=== PATIENT | male | born 1995 | race Caucasian/White ===

== ENCOUNTER 2024-12-29 07:47 | Outpatient (OUT) | payer OTHER, SELFPAY ==
--- OUTSIDE RECORDS SUMMARY | 2023-10-11 08:30 | XMS_ITS ---
Author Organization [facility] in [place] Address [address] [place] [address] Care Team Providers Care Asset Management Coordinator Name Role Phone Ivanna Carver CNP Primary Care Provider Unavail able Provider, Radiology Unavailable [phone] REASON FOR VISIT BRAIN W/WO Encounters Encounter Location Date Provider Diagnosis Radiology [facility] [address] [place] [address] 10/11/2023 Radiology Provider Plan Of Treatment No Information Progress Notes * Sincere GORDON RDOB: [birth year] (29 yo M)Acc No.[id number]:10/11/2023 UNLOCKED PROGRESS NOTE Patient: Sincere TAYLOR Provider: Eunice adiology Provider :1995 A ge:27 Y S ex:Male Date:10/11/2023 Address:[address] [place], [place] [id number] Pcp:Ivanna Carver CNP Check In:12:20 PM ESTCheck O ut:12:49 PM EST Subjective: * Chief Complaints: * 1 . BRAIN W/WO. 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
--- OUTSIDE RECORDS SUMMARY | 2024-12-29 07:53 | XMS_ITS | Encounter Summary ---
Author Organization [facility] Address [address] [place] [address] Care Team Providers Care Pourer Crane Ladle Name Role Phone Rajani Waggoner MD Unavailable [phone] Adrian Waggoner MD Unavailable Unavail able Maria C Enamorado APRN.METAL CUT OFF SAW OPERATOR Unavailable [phone] Niru Cardona RN Unavailable [phone] Tomasa Mederos Unavailable Unavailable Ivanna Carver METAL CUT OFF SAW OPERATOR Primary Care Provider [phone] Source Comments In the event this information is protected by the Federal Confidentiality of Alcohol and Drug AbusePatient Records regulations: The Federal rules restrict any use of the information to criminally investigate or prosecute any alcohol or drug abuse patient.[facility] Encounter Details Date Type Department Care Team (Late st Contact Info) Description 07/06/2022 Patient Msg Cancer Appts [address] [place] [address] Provider, Ccf Appointment Scheduled Social History Tobacco Use Types Packs/Day Years Used Date Smoking Tobacco: Never Passive Smoke Exposure: Past Smokeless Tobacco: Never Alcohol Use Standard Drinks/Week Comments Yes 12 (1 standard drink = 0.6 oz pu re alcohol) PHQ-2 Answer Date Recorded PHQ-2 score 0 04/10/2022 Area Deprivation Index Answer Date Lopez rded National Score (1-100), lower number is lower ri sk 73 04/02/2022 State Score (1-10), lower number is lower risk N ot on file 04/02/2022 Data from: https://www.neighborhoodatlas.medicine.[facility]/. Last address used for calculation [address] 04/02/2022 Sex and Gender Information Value Date Recorded Sex Assigned at Not on file Legal Sex Male 3:21 PM EDT Gender Identity Not on file Sexual Orientation Not on file documented as of this encounter Plan of Treatment Upcoming Encounters Date Type Department Care Team (Latest Contact Info) Description 06/10/2025 11:15 AM EDT Office Visit [facility] [address] [place] [address] [place] [address] 1 year follow up [facility] lab ALEC/BRM 06/10/2025 11:40 AM EDT Visit (SP) Office Hematology/Oncology [address] [place] [address] [place] [address] Shaan Parish MD [address] [place] [address] [place] [address] 1 year follow up [facility] lab ALEC/BRM documented as of this encounter Visit Diagnoses Not on filedocumented in this encounter Care Teams Pourer Crane Ladle Relationship Specialty Start Date End Date Ivanna Carver METAL CUT OFF SAW OPERATOR [facility] [place] [address] PCP - General Family Medicine 11/14/21 Rajani Waggoner MD [address] [place], [place] [address] Radiation Oncology 12/08/20 Adrian Waggoner MD [address] [place], [place] [address] Physician Hematology/Oncology 01/10/21 09/18/24 Maria C Enamorado APRN.METAL CUT OFF SAW OPERATOR [address] [place] [address] Nurse Practitioner Hematology/Oncology 01/10/21 Niru Cardona, RN [address] [place] [address] Specialty Buffing Wheel Inspector Hematology/Oncology 01/10/21 01/07/24 Tomasa Mederos LSW Tank Truck Engine Mechanic 10/18/21 documented as of this encounter
--- OUTSIDE RECORDS SUMMARY | 2024-12-29 07:53 | XMS_ITS | Encounter Summary ---
Author Organization [facility] Address [id number] [address] [place] [address] Care Team Providers Care Cadmium Burner Name Role Phone Breana Loredo MD Primary Care Provider [phone] Encounter Details Date Type Department Care Team (Late st Contact Info) Description 06/06/2021 Orders Only [facility] [address] [place] [id number] Hetal Lomas CMA Astrocytoma ([facility]) Social History Tobacco Use Types Packs/Day Years Used Date Smoking Tobacco: Never Smokeless Tobacco: Never Alcohol Use Standard Drinks/Week Comments Yes 0 (1 standard drink = 0.6 oz pur e alcohol) Occasional Childcare Answer Date Recorded Childcare Unknown 08/27/2018 Employment Answer Date Recorded Employment Unknown 08/27/2018 Sex and Gender Information Value Date Recorded Sex Assigned at Not on file Legal Sex Male 12:12 PM EDT Gender Identity Not on file Sexual Orientation Not on file documented as of this encounter Plan of Treatment Not on file documented as of this encounter Goals Goal Patient Goal Type Associated Problems Recent Progress Patient-Stated? Author <enter goal here> General Yes Jessie Landin, DIRECT SUPPORT PROFESSIONAL Note: Evaluation of progress towards goal: Home, no needs documented as of this encounter Visit Diagnoses Diagnosis Astrocytoma ([facility]) Malignant neoplasm of brain, unspecified site documented in this encounter Care Teams Cadmium Burner Relationship Specialty Start Date End Date Breana Loredo MD PCP - General Family Medicine 11/12/20 documented as of this encounter
--- OUTSIDE RECORDS SUMMARY | 2024-12-29 07:53 | XMS_ITS | Patient Health Record ---
Author Organization [facility] [place] Address [address] [place] [address] Care Team Providers Care Die Sinker Apprentice Name Role Phone Ivanna Carver CNP Primary Care Provider Unavail able Provider, Radiology Unavailable [phone] Results Component Value Reference Range Notes MRI Brain w/wo contrast * (N ot yet reviewed by provider) Interpretation: Performing Lab: Notes/Report: [facility], [place] [address] [place] [address] Name: Heidi Dawson : 1995 Gender: M Referring Provider: Adrian Waggoner Exam: MRI BRAIN WITH AND WITHOUT CONTRAST Exam Start: 05/25/2024 Accn: [id number] History: Anaplastic astrocytoma resection 2019. Follow-up. Malignancy evaluation. MRI of the brain with and without gadolinium including perfusion images. Patient was given 15 mL of Clariscan IV. Exam is compared to the 10/11/23 MRI of the brain. Findings: Postop changes left frontal lobe at the junction of the left middle and inferior frontal gyri with CSF cavity in this region having a maximum diameter of 2.5 cm. This is stable. Small amount of nonenhancing increased T2 signal adjacent to the operative site is also stable. No new increased T2 signal within the brain parenchyma, particularly adjacent to the operative site. No abnormal enhancement. No abnormal blood flow on the perfusion images. No restricted diffusion. No low-lying cerebellar tonsils. Brainstem is unremarkable. No abnormalities in the region of the internal auditory canals or sella. No venous thrombosis. Mild membrane thickening in the maxillary sinuses. 2.3 cm mucous retention cyst in the left maxillary sinus is stable. Orbits are unremarkable. Left mastoid effusion is stable with no aggressive features. IMPRESSION: 1. Postop changes left frontal lobe are stable dating back to the 03/21/23 MRI of the brain. No evidence for tumor recurrence. 2. Mild chronic changes otherwise noted are stable. 3. No acute intracranial process. Transcribed by: ASAF BARRIOS 05/25/2024 09:48 Sincerely, Johny Glez MD Electronically Signed: 05/25/2024 10:47 Thank you for referring ISNCERE GORDON to the [facility], [facility], [phone] Reason For Referral No Information Problems Problem Type SNOMED Code ICD Code Onset Dates Problem Status W/U Status Risk Notes Problem Malignant neoplasm of frontal lobe ([id number]) Astrocytoma of frontal lobe (C71.1) Active confirmed Problem History of malignant neoplasm of brain (194026402) H/O malignant neoplasm of brain (Z85.841) Active confirmed Encounters Encounter Location Date Provider Diagnosis [facility] [address] [place] [address] 05/25/2024 Radiology Provider Malignant neoplasm of brain, unspecified C71.9 Assessments Encounter Date Diagnosis (ICD Code) Assessment Notes Treatment Notes Treatment Clinical Notes Section Notes 05/25/2024 Malignant neoplasm of brain, unspecified (ICD-10 - C71.9) Plan Of Treatment Pending Test Test Name Order Date MRI Brain w/wo contrast * 06/05/2021 MRI Brain w/wo contrast * 09/19/2021 MRI Brain w/wo contrast * 12/29/2021 MRI Brain w/wo contrast * 03/30/2022 MRI Brain w/wo contrast * 07/12/2022 MRI Brain w/wo contrast * 11/20/2022 MRI Brain w/wo contrast * 03/21/2023 MRI Brain w/wo contrast * 10/11/2023 MRI Brain w/wo contrast * 05/25/2024 Insurance Providers Payer Name Payer Address Payer Phone Subscriber Number Group Number Insured Name Patient Relationship to Insured Coverage Start Date Coverage End Date MMO [employer] [address] [place] [phone] [id number] Sincere Gordon Self - patient is the insured 2
--- OUTSIDE RECORDS SUMMARY | 2024-12-29 07:53 | XMS_ITS | Encounter Summary ---
Author Organization [facility] Address [address] [place] [address] Care Team Providers Care Psychologist Research Assistant Name Role Phone Breana Loredo MD Primary Care Provider [phone] Rajani Waggoner MD Unavailable [phone] Adrian Waggoner MD Unavailable Unavail able Maria C Enamorado APRN.PRINCIPAL TECHNICAL WRITER Unavailable [phone] Niru Cardona RN Unavailable [phone] Tomasa Mederos Unavailable Unavailable Ivanna Carver CNP Primary Care Provider [phone] Source Comments In the event this information is protected by the Federal Confidentiality of Alcohol and Drug AbusePatient Records regulations: The Federal rules restrict any use of the information to criminally investigate or prosecute any alcohol or drug abuse patient.[facility] Encounter Details Date Type Department Care Team (Latest Contact Info) Description 12/08/2020 H&P External-NonCCF Provider, External, [facility] Do not enter address information under generic External Provider. Social History Tobacco Use Types Packs/Day Years Used Date Smoking Tobacco: Never Assessed Sex and Gender Information Value Date Recorded Sex Assigned at Not on file Legal Sex Male 3:21 PM EDT Gender Identity Not on file Sexual Orientation Not on file COVID-19 Exposure Response Date Recorded In the last month, have you been in contact with someone who was confirmed or suspected to have Coronavirus / COVID-19? Unable to assess 12/08/2020 8:53 AM EDT documented as of this encounter Plan of Treatment Upcoming Encounters Date Type Department Care Team (Latest Contact Info) Description 06/10/2025 11:15 AM EDT Office Visit [facility] [address] [place] [address] [place] [address] 1 year follow up [facility] lab ALEC/BRM 06/10/2025 11:40 AM EDT Visit (SP) Office Hematology/Oncology [address] [place] [address] [place] [address] Shaan Parish MD [address] [place] [address] [place] [address] 1 year follow up [facility] lab ALEC/BRM documented as of this encounter Visit Diagnoses Not on filedocumented in this encounter Care Teams Psychologist Research Assistant Relationship Specialty Start Date End Date Breana Loredo MD [address] [place] [address] PCP - General Family Medicine 12/07/20 11/13/21 Ivanna Carver, PRINCIPAL TECHNICAL WRITER [address] [place] [address] PCP - General Family Medicine 11/14/21 Rajani Waggoner MD [address] [place], [place] [address] Radiation Oncology 12/08/20 Adrian Waggoner MD [address] [place], [place] [address] Physician Hematology/Oncology 01/10/21 09/18/24 Maria C Enamorado APRN.PRINCIPAL TECHNICAL WRITER [address] [place] [address] Nurse Practitioner Hematology/Oncology 01/10/21 Niru Cardona, RN [address] [place] [address] Specialty Wood Technologist Hematology/Oncology 01/10/21 01/07/24 Tomasa Mederos LSW Plant Technical Specialist 10/18/21 documented as of this encounter
--- OUTSIDE RECORDS SUMMARY | 2024-12-29 07:54 | XMS_ITS | Encounter Summary ---
Author Organization [facility] Address [id number] [address] [place] [address] Care Team Providers Care Fiction And Nonfiction Author Name Role Phone Breana Lordeo MD Primary Care Provider [phone] Encounter Details Date Type Department Care Team (Late st Contact Info) Description 11/18/2020 Telephone [facility] [address] [place] [address] Deann Dupree Social History Tobacco Use Types Packs/Day Years [...] have Coronavirus / COVID-19? Unable to assess 11/17/2020 10:55 AM EDT documented as of this encounter Miscellaneous Notes * Telephone Encounter - Deann Dupree - 11/18/2020 8:01 AM EDT ----- Message from Nilam Mcpherson MD sent at 11/16/2020 2:34 PM EDT ----- Regarding: Follow-up appointment Patient needs a new patient appointment with myself in 4-6 months for Keppra wean off. * Telephone Encounter - Frances Harpel - 11/18/2020 8:01 AM EDT Attempted to schedule appointment. Patient's mother in law answered and took a message for Clayton to call back. Environmental Field Professional left clinic phone number. Thank you! documented in this encounter Plan of Treatment Not on file documented as of this encounter Goals Goal Patient Goal Type Associated Problems Recent Progress Patient-Stated? Author <enter goal here> General Yes Jessie Landin LSW Note: Evaluation of progress towards goal: Home, no needs documented as of this encounter Visit Diagnoses Not on filedocumented in this encounter Care Teams Fiction And Nonfiction Author Relationship Specialty Start Date End Date Breana Loredo MD PCP - General Family Medicine 11/12/20 documented as of this encounter
--- OUTSIDE RECORDS SUMMARY | 2024-12-29 07:54 | XMS_ITS | Clinical Summary ---
Author Organization [facility] Address [address] [place] [address] Care Team Providers Care Highway Research Engineer Name Role Phone Rajani Waggoner MD Unavailable [phone] Maria C Enamorado APRN.SENIOR FINANCIAL REPORTING ANALYST Unavailable [phone] Tomasa Mederos Unavailable Unavailable Ivanna Carver SENIOR FINANCIAL REPORTING ANALYST Primary Care Provider [phone] Allergies Active Allergy Reactions Criticality Noted Date Comments Tama Pollen Other: See Comments 12/20/2020 Nose congestion Medications levETIRAcetam (KEPPRA) 500 mg tablet Take 1 tablet by mouth twice daily. 500MG AM AND 1000 PM 60 tablet 11 07/12/2022 Active Active Problems Problem Noted Date Diagnosed Date Left frontal astrocytoma, WH O grade 3, IDH-mutant, 1p/19q non codeleted 12/20/2020 Immunizations Immunization Administration Dates Next Due Haemophilus influenzae b (Hi b) vaccine, unspecified formulation 04/07/1997,07/13/1996 diphtheria tetanus pertussis (DTaP) vaccine, unspecified formulation 06/18/2001,04/07/1997,07/13/1996 diphtheria tetanus pertussis -Haemophilus influenzae b (DTP-Hib) vaccine (TETRAMUNE) 04/15/1996,01/06/1996 hepatitis B (HepB) vaccine, 3-dose series, age 0 yr - 19 yr (ENGERIX B-PEDS, RECOMBIVAX HB-PEDS) 07/13/1996,01/06/1996,1995 influenza (IIV4) vaccine, ag e 6 mo - 64 yr, quadrivalent, PF (AFLURIA, FLUARIX, FLULAVAL, FLUZONE) 12/28/2020 measles mumps rubella (MMR) vaccine (M-M-R II, PRIORIX) 09/09/2001,04/07/1997 meningococcal (MenACWY-D) va ccine, quadrivalent (MENACTRA) 08/31/2010 poliovirus (IPV) vaccine, in activated (IPOL) 06/18/2001 poliovirus (OPV) vaccine, tr ivalent, live, oral (ORIMUNE) 07/13/1996,04/15/1996,01/06/1996 tetanus diphtheria pertussis (Tdap) vaccine, age 7+ yr (ADACEL, BOOSTRIX) 08/31/2010 Family History Medical History Relation Comments Tongue cancer Maternal Grandfather Relation Status Comments Maternal Grandfather Social History Tobacco Use Types Packs/Day Years Used Date Smoking Tobacco: Never Passive Smoke Exposure: Past Smokeless Tobacco: Never Tobacco Cessation:Counseling Given: No Alcohol Use Standard Drinks/Week Comments Yes 12 (1 standard drink = 0.6 oz pu re alcohol) PHQ-2 Answer Date Recorded PHQ-2 score 0 10/15/2023 Area Deprivation Index Answer Date Lopez rded National Score (1-100), lower number is lower ri sk 78 07/24/2022 State Score (1-10), lower number is lower risk 6 07/24/2022 Data from: https://www.neighborhoodatlas.medicine.[facility].edu/. Last address used for calculation [address] [place] [address] 07/24/2022 Sex and Gender Information Value Date Recorded Sex Assigned at Not on file Legal Sex Male 3:21 PM EDT Gender Identity Not on file Sexual Orientation Not on file Last Filed Vital Signs Vital Sign Reading Time Taken Comments Blood Pressure 129/79 06/11/2024 10:56 AM EDT Pulse 74 06/11/2024 10:56 AM EDT Temperature 36.3 C (97.3 F) 06/11/2024 10:56 AM EDT Respiratory Rate 16 06/11/2024 10:56 AM EDT Oxygen Saturation 100% 06/11/2024 10:56 AM EDT Inhaled Oxygen Concentration - - Weight 86.2 kg (190 lb 0.6 oz) 06/11/2024 10:56 AM EDT Height 177.8 cm (5' 10 ) 10/15/2023 8:59 AM EDT Body Mass Index 27.27 10/15/2023 8:59 AM EDT Plan of Treatment Upcoming Encounters Date Type Department Care Team (Latest Contact Info) Description 06/10/2025 11:15 AM EDT Office Visit [facility] [address] [place] [address] [facility] lab ALEC/BRM 06/10/2025 11:40 AM EDT Visit (SP) Office Hematology/Oncology [address] [place] [address] Shaan Parish MD [address] [place] [address] [facility] lab ALEC/BRM Health Maintenance Due Date Last Done Comments Anxiety Screening 10/17/2013 Depression Screening 10/17/2013 HIV Screening 10/17/2013 Hepatitis C Screening 10/17/2013 DTaP,Tdap,Td Vaccine (7 - Td or Tdap) 08/31/2020 08/31/2010, 06/18/2001, 04/07/1997, Additional history exists HPV Vaccine (1 - 3-dose SCDM series) 10/17/2022 Covid-19 Vaccine ( - 2024-2 6 season) 2024 Influenza Vaccine (#1) 2024 12/28/2020 Hepatitis B Vaccine Completed 07/13/1996, 01/06/1996, 1995 Insurance [facility] PPO Care Teams Highway Research Engineer Relationship Specialty Start Date End Date Ivanna Carver CNP [address] [place] [address] PCP - General Family Medicine 11/14/21 [place] [address] [place] [address] Radiation Oncology 12/08/20 Maria C Enamorado APRN.SENIOR FINANCIAL REPORTING ANALYST [address] [place] [address] [place] [address] Nurse Practitioner Hematology/Oncology 01/10/21 Tomasa Mederos LSW Crane Hooker 10/18/21
--- OUTSIDE RECORDS SUMMARY | 2024-12-29 07:54 | XMS_ITS | Encounter Summary ---
Author Organization [employer] tem Address [facility] [id number] [address] [place] [address] Care Team Providers Care Geographic Information System Analyst Name Role Phone Breana Loredo MD Primary Care Provider [phone] Reason for Referral * Consultation (Routine) - Closed Specialty Diagnoses / Procedures Referred By Contjonn t Referred To Contact Medical Oncology Diagnoses Astrocytoma ([facility]) Richard Godwin MD [address] [place] [address] Phone: tel: fax: Adrian Waggoner MD Phone: tel: fax: Referral ID Status Reason Start Date Expiration Date V isits Requested Visits Authorized [id number] Closed Specialty Services Required 12/07/2020 12/07/2021 1 1 * Consultation (Routine) - Closed Specialty Diagnoses / Procedures Referred By Contac t Referred To Contact Radiation Oncology Diagnoses Astrocytoma ([facility]) Richard Godwin MD [address] [place] [address] Phone: tel: fax: Cortes Melendez MD [address] [place] [address] [place] [address] Phone: tel: fax: Referral ID Status Reason Start Date Expiration Date V isits Requested Visits Authorized [id number] Closed Specialty Services Required 12/07/2020 12/07/2021 1 1 Encounter Details Date Type Department Care Team (Late st Contact Info) Description 12/07/2020 Orders Only [facility] [address] [place] [address] Coleen Cadena MA Astrocytoma ([facility]) (Primary Dx) Social History Tobacco Use Types Packs/Day Years [...] or suspected to have Coronavirus / COVID-19? No / Unsure 12/01/2020 3:28 PM EDT documented as of this encounter Plan of Treatment Scheduled Referrals Name Type Priority Associated Diagnoses Order Schedule Ambulatory referral to Radiation Oncology Outpatient Referral Routine Astrocytoma ([facility]) 1 Occurrences starting 12/07/2020 until 06/06/2021 Ambulatory referral to Hematology / Oncology Outpatient Referral Routine Astrocytoma ([facility]) 1 Occurrences starting 12/07/2020 until 06/06/2021 documented as of this encounter Goals Goal Patient Goal Type Associated Problems Recent Progress Patient-Stated? Author <enter goal here> General Yes Jessie Landin, ASSISTANT PROFESSOR OF BIOCHEMISTRY Note: Evaluation of progress towards goal: Home, no needs documented as of this encounter Visit Diagnoses Diagnosis Astrocytoma ([facility])- Primary Malignant neoplasm of brain, unspecified site documented in this encounter Care Teams Geographic Information System Analyst Relationship Specialty Start Date End Date Breana Loredo MD PCP - General Family Medicine 11/12/20 documented as of this encounter
--- OUTSIDE RECORDS SUMMARY | 2024-12-29 07:54 | XMS_ITS | Clinical Summary ---
Author Organization [employer] tem Address [facility] [place]-[id number] [address] [place] [address] Care Team Providers Care Online Communications Manager Name Role Phone Breana Loredo MD Primary Care Provider [phone] Allergies No known active allergies Medications acetaminophen (TYLENOL) 500 mg tablet Take 500 mg by mouth every 6 (six) hours as needed. Active ondansetron (ZOFRAN) 8 mg tablet Take 8 mg by mouth every 8 (eight) hours as needed. 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 - does not have homozygous CDKN2A/B deletion New onset seizure 11/12/2020 Immunizations No known immunizations Social History Tobacco Use Types Packs/Day Years [...] Sign Reading Time Taken Comments Blood Pressure 133/84 11/17/2020 11:11 AM EDT Pulse 65 11/17/2020 11:11 AM EDT Temperature 37 C (98.6 F) 11/17/2020 11:11 AM EDT Respiratory Rate 16 11/17/2020 11:11 AM EDT Oxygen Saturation 96% 11/17/2020 11:11 AM EDT Inhaled Oxygen Concentration - - Weight 81.9 kg (180 lb 8.9 oz) 11/13/2020 6:00 A M EDT Height 182.9 cm (6') 11/12/2020 5:42 PM EDT Body Mass Index 24.49 11/12/2020 5:42 PM EDT Plan of Treatment Health Maintenance Due Date Last Done Comments Depression Screening 2007 Tobacco Screening 2007 Adult BMI Screening 10/17/2013 DTaP,Tdap and Td Vaccines (7 - Td or Tdap) 08/31/2020 08/31/2010, 06/18/2001, 04/07/1997, Additional history exists Influenza Vaccine 11/16/2024 12/28/2020 Goals Goal Patient Goal Type Associated Problems Recent Progress Patient-Stated? Author <enter goal here> General Yes Jessie Landin, LANCE CREWMEMBER Note: Evaluation of progress towards goal: Home, no needs Medical Devices Implanted Type Area Grain Elevator Operator Device Identifier Shelf Expiration Date Model / Serial / Lot Cover Bur Hl Crnmxf .5mm 10mm Lp Tab Unv Neuro 2 Med Ti 1.5 - [id number] Implanted:Qt y: 1 on 11/15/2020 by Richard Godwin MD at [facility] Other Implant Left: Brain [employer] [id number] / / Plate Bn 12mm 2 Hl Lp Bar X Rgd Unv Neuro Ii Quikflap Crnmxf - [id number] Implanted:Qt y: 3 on 11/15/2020 by Richard Godwin MD at [facility] Plate Left: Brain [employer] [id number] / / Screw Bn 4mm 1.5mm Slf Drl Xpn Crnmxf Strl - [id number] Implanted:Qt y: 9 on 11/15/2020 by Richard Godwin MD at [facility] Screw Left: Brain [employer] [id number] / / Insurance [employer] Advance Directives * Full Code (Latest Code Status on File) Date Activated Date Inactivated Comments 11/12/2020 5:36 PM 11/17/2020 5:57 PM Care Teams Online Communications Manager Relationship Specialty Start Date End Date Breana Loredo MD PCP - General Family Medicine 11/12/20
--- OUTSIDE RECORDS SUMMARY | 2024-12-29 07:54 | XMS_ITS | Encounter Summary ---
Author Organization [employer] Address [facility] [id number] [address] 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[facility]) Richard Godwin MD [address] [place] [address] Phone: tel: fax: Breana Loredo MD [address] [place] [address] Phone: tel: fax: Referral ID Status Reason Start Date Expiration Date Visits Requested Visits Authorized [id number] Closed Patient Preference 05/29/2021 05/29/2022 1 1 Encounter Details Date Type Department Care Team (Late st Contact Info) Description 12/07/2020 Orders Only [facility] [address] [place] [phone] Richard Godwin MD [address] [place] [address] Glioma ([facility]) (Primary Dx) Social History Tobacco Use Types [...] Associated Diagnoses Order Schedule Ambulatory referral to Hematology / Oncology Outpatient Referral Routine Glioma ([facility]) 1 Occurrences starting 05/29/2021 until 06/06/2021 documented as of this encounter Goals Goal Patient Goal Type Associated Problems Recent Progress Patient-Stated? Author <enter goal here> General Yes Jessie Landin, ANODE MACHINE OPERATOR Note: Evaluation of progress towards goal: Home, no needs documented as of this encounter Visit Diagnoses Diagnosis Glioma ([facility])- Primary documented in this encounter Care Teams Crime Scene Specialist Relationship Specialty Start Date End Date Breana Loredo MD PCP - General Family Medicine 11/12/20 documented as of this encounter
--- OUTSIDE RECORDS SUMMARY | 2024-12-29 07:54 | XMS_ITS | Clinical Summary ---
Author Organization [facility] Address [address] [place] [address] Care Team Providers Care Radiology Tech Name Role Phone Emile Mccormack DO Unavailable [phone] Ivanna Kidd MD Unavailable Quinn Red MD Primary Care Provider [phone] Ivanna Carver NP Unavailable [phone] Allergies No known active allergies Medications levETIRAcetam (Keppra) 500 MG tablet Take 1 tablet by mouth in the morning and 1 tablet before bedtime. 10/15/2022 Active Active Problems Problem Noted Date Diagnosed Date Burning sensation 11/10/2024 Seizure 10/05/2024 Assessment & Plan (10/05/2024 6:24 AM EDT): From brain tumor keppra Encounter for wellness examination 10/05/2024 Assessment & Plan (10/05/2024 6:28 AM EDT): Reviewed Ht/Wt/BMI Recommend eye exam yearly Recommend dental exams twice a year Balance work/leisure activities Exercises is recommended most days of the week (appropriate as chronic conditions allow) Follow up yearly and prn Verruca vulgaris 10/05/2024 Assessment & Plan (11/10/2024 8:58 AM EDT): Cryo X3, tolerated well Fu in 1month Assessment & Plan (10/05/2024 9:03 AM EDT): Schedule for cryo 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 We'll monitor this and may consider an increase in the future for the symptoms if they become further problematic for him. 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 - does not have homozygous CDKN2A/B deletion Resolved Problems Problem Noted Date Diagnosed Date Resolved Date Subacute maxillary sinusitis 10/05/2024 11/10/2024 Assessment & Plan (10/05/2024 9:01 AM EDT): Likely secondary to allergies Will order atb Fu if not better Other chronic pain 09/29/2023 Acute non-recurrent maxillary sinusitis 04/23/2023 10/05/2024 Assessment & Plan (04/23/2023 10:54 AM EST): Fluids , rest, decongestant Atb, fu if not better New onset seizure 11/12/2020 10/05/2024 Encounters Date Type Department Care Team Description 11/10/2024 8:20 AM EDT Procedure Visit [facility] [address] [place] [address] Ivanna Carver, STUART Verruca vulgaris (Primary Dx); Burning sensation 11/10/2024 Bamboo flowsheet [facility] [address] [place] [address] Ivanna Carver NP 10/05/2024 8:40 AM EDT Office Visit [facility] [address] [place] [address] Ivanna Carver NP Encounter for wellness examination (Primary Dx); Seizure (HCC); Frontal malignant astrocytoma (HCC); Subacute maxillary sinusitis; Verruca vulgaris 10/05/2024 Bamboo flowsheet [facility] [address] [place] [address] Ivanna Carver NP from Last 3 Months Immunizations Immunization Administration Dates Next Due DTP / HiB 04/15/1996,01/06/1996 DTaP, Unspecified 06/18/2001,04/07/1997,07/13/18 97 Hep B, Adolescent or Pediatric 07/13/1996,1995,1995 HiB, unspecified 04/07/1997,07/13/1996 IPV 06/18/2001 Influenza, injectable, quadr ivalent, preservative free 12/28/2020 MMR 09/09/2001,04/07/1997 Meningococcal MCV4P 08/31/2010 OPV 07/13/1996,04/15/1996,01/06/1996 Tdap 08/31/2010 Family History Medical History Relation Name Comments Hypertension Mother Relation Name Status Comments Mother Social History Tobacco Use Types Packs/Day Years Used Date Smoking Tobacco: Never Smokeless Tobacco: Never Tobacco Cessation:Counseling Given: Not Answered Alcohol Use Standard Drinks/Week Comments Yes 2 (1 standard drink = 0.6 oz pur e alcohol) coffee all day AUDIT-C Answer Date Recorded Q1: How often do you have a drink containing alc ohol? 2-4 times a month 09/29/2023 Q2: How many drinks containi ng alcohol do you have on a typical day when you are drinking? 1 or 2 09/29/2023 Q3: How often do you have si x or more drinks on one occasion? Never 09/29/2023 PHQ-2 Answer Date Recorded Patient Health Questionnaire-2 Score 1 04/23/2023 Sex and Gender Information Value Date Recorded Sex Assigned at Not on file Legal Sex Male 11:13 PM EDT Gender Identity Not on file Sexual Orientation Not on file Last Filed Vital Signs Vital Sign Reading Time Taken Comments Blood Pressure 112/72 11/10/2024 8:38 AM EDT Pulse 71 11/10/2024 8:38 AM EDT Temperature 37 C (98.6 F) 11/10/2024 8:38 AM EDT Respiratory Rate 18 11/10/2024 8:38 AM EDT Oxygen Saturation 98% 11/10/2024 8:38 AM EDT Inhaled Oxygen Concentration - - Weight 85.7 kg (189 lb) 11/10/2024 8:38 AM EDT Height 182.9 cm (6') 11/10/2024 8:38 AM EDT Body Mass Index 25.63 11/10/2024 8:38 AM EDT Plan of Treatment Not on file Insurance [employer] Care Teams Radiology Tech Relationship Specialty Start Date End Date Quinn Red MD [address] [place] [phone] PCP - General Family Medicine 09/30/24 Emile Mccormack DO [address] [place] [address] Referring Physician Neurology 03/25/24 Ivanna Kidd MD [address] [place] [address] Referring Physician Family Medicine 03/25/24 Ivanna Carver NP [address] [place] [phone] Nurse Practitioner Family Medicine 09/30/24
--- NOTE | 2024-12-29 07:59 | CT_ITS ---
The [address] [address] Patient Name: LUIS PAINTING MRN: [id number] date: 1995 Sex: M Assigned Patient Location: CT Current Patient Location: CT Accession/Order Number: [id number] Exam Date: 12/29/2024 08:04 Report Date: 12/29/2024 08:48 At the request of: NENO NUNO NP Procedure: CT sinus wo con CT PARANASAL SINUSES WITHOUT CONTRAST: CLINICAL HISTORY: Chronic Sinusitis J32.9 COMPARISON: None TECHNIQUE: Contiguous axial unenhanced images were obtained through the paranasal sinuses. Coronal reconstructions were also performed. This CT exam was performed using one or more following dose reduction techniques: Automated exposure control, adjustment of the mA and/or kV according to patient size, or use of iterative reconstruction technique. FINDINGS: There is appropriate development and pneumatization. There is previous surgery with resection of the medial maxillary ramirez and middle turbinates. There is mild bilateral maxillary mucosal thickening as well as a mucous distention cyst or polyp on the left measuring approximately 2.7 cm in size. There is an opacified right ethmoid air cell. No fluid levels are seen. No bony destruction is noted. Minimal asymmetric mucosal congestion is present within the left nasal passage. There is subtle anterior nasal septal deviation to the right. CT/CT sinus wo con IMPRESSION: POSTOPERATIVE CHANGES. MINOR CHRONIC SINUSITIS AND LEFT MAXILLARY MUCUS RETENTION CYST OR POLYP Impression dictated by: Nicole Gallardo M.D. 12/29/2024 8:48 AM Dictation Location: [place] [address] Electronically authenticated by: [id number] Y Date: 12/29/2024 08:48
== END 2024-12-29 07:48 | disposition home or self-care (01) ==
PROVIDERS: PCP Nurse Practitioner; Visit Provider Nurse Practitioner
DX: J32.9 Chronic sinusitis, unspecified (principal)
CPT/HCPCS: 70486

== ENCOUNTER 2025-01-27 08:00 | Outpatient (OUT) | payer OTHER, SELFPAY ==
--- OUTSIDE RECORDS SUMMARY | 2023-10-11 07:30 | XMS_ITS ---
Author Organization [facility] in [place] Address [address] [place] [address] Care Team Providers Care Vocational Aide Name Role Phone Ivanna Carver CNP Primary Care Provider Unavail able Provider, Radiology Unavailable [phone] REASON FOR VISIT BRAIN W/WO Encounters Encounter Location Date Provider Diagnosis Radiology [place] [address] [place] [address] 10/11/2023 Radiology Provider Plan Of Treatment No Information Progress Notes * Sincere GORDON RDOB: [birth year] (29 yo M)Acc No.[id number]:10/11/2023 UNLOCKED PROGRESS NOTE Patient:?MERT Sincere Dawson :?Radiology ProviderDOB:1995???Age:27 Y ???Sex:MaleDate:10/11/2023hone:[phone]:[address] [place] [address]Pcp:Marcelina Cotton In:12:20 PM ESTCheck Out:12:49 PM EST Subjective: * Chief Complaints: * 1 . BRAIN W/WO. 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
--- NOTE | 2025-01-27 | CT_ITS ---
The [address] [address] Patient Name: LUIS PAINTING MRN: [id number] date: 1995 Sex: M Assigned Patient Location: CT Current Patient Location: CT Accession/Order Number: [id number] Exam Date: 01/27/2025 08:09 Report Date: 01/27/2025 09:51 At the request of: NENO NUNO NP Procedure: CT soft tissue neck w con CT SOFT TISSUE NECK WITH CONTRAST COMPARISON: None CLINICAL DATA: Tender area at the left jaw becoming more noticeable. Chronic sinus drainage Spiral images were obtained through the neck following 100 mL of Omnipaque 300. A marker was placed at the site of clinical concern. This CT exam was performed using one or more following dose reduction techniques: Automated exposure control, adjustment of the mA and/or kV according to patient size, or use of iterative reconstruction technique. No thyroid nodularity is identified. The submandibular and parotid glands appear symmetric. There is no enlargement of the adenoids or tonsils. Tonsillar calcifications are visualized on the left. The epiglottis and vocal cords are within normal limits. The airway is patent throughout its course with normal appearance the mucosal surfaces. There is no prevertebral soft tissue swelling. There are shotty cervical lymph nodes, largest in the jugulodigastric region measuring up to 8 mm in short axis dimension on the left. The bony structures are intact. A left maxillary mucus retention cyst or polyp is present. There is minor mucosal thickening at the base of the right maxillary sinus. Limited imaging through the upper chest shows no contributory findings. CT/CT soft tissue neck w con IMPRESSION: NO ACUTE NECK ABNORMALITY OR SIGNIFICANT FINDINGS AT THE SITE OF CLINICAL CONCERN. Impression dictated by: Nicole Gallardo M.D. 01/27/2025 9:51 AM Dictation Location: [place] [address] Electronically authenticated by: [id number] Y Date: 01/27/2025 09:51
--- OUTSIDE RECORDS SUMMARY | 2025-01-27 08:03 | XMS_ITS | Patient Health Record ---
Author Organization [facility] [place] Address [address] [place] [address] Care Team Providers Care Canal Structure Operator Name Role Phone Ivanna Carver CNP Primary Care Provider Unavail able Provider, Radiology Unavailable [phone] Results Component Value Reference Range Notes MRI Brain w/wo contrast * (N ot yet reviewed by provider) Interpretation: Performing Lab: Notes/Report: [facility], [place] [id number] [place] [address] Name: Heidi Dawson : 1995 Gender: M Referring Provider: Adrian Waggoner Exam: MRI BRAIN WITH AND WITHOUT CONTRAST Exam Start: 05/25/2024 Accn: [id number] History: Anaplastic astrocytoma resection 2019. Follow-up. Malignancy [...] Signed: 05/25/2024 10:47 Thank you for referring SINCERE GORDON to the [facility], [phone] Reason For Referral No Information Problems Problem Type SNOMED Code ICD Code Onset Dates Problem Status W/U Status Risk Notes Problem Malignant neoplasm o f frontal lobe (016301633) Astrocytoma of frontal lobe (C71.1) ActiveconfirmedProblemHistory of malignant neoplasm of brain (674815286)H/O malignant neoplasm of brain (Z85.841)Activeconfirmed Encounters Encounter Location Date Provider Diagnosis Radiology [facility] [address] [place] [address] 05/25/2024 Radiology Provider Malignant neoplasm of brain, unspecified C71.9 Assessments Encounter Date Diagnosis (ICD Code) Assessment Notes Treatment Notes Treatment Clinical Notes Section Notes 05/25/2024 Malignant neoplasm of brain, uns pecified (ICD-10 - C71.9) Plan Of Treatment Pending Test Test Name Order Date MRI Brain w/wo contrast * 06/05/2021 MRI Brain w/wo contrast * 09/19/2021 MRI Brain w/wo contrast * 03/30/2022 MRI Brain w/wo contrast * 07/12/2022 MRI Brain w/wo contrast * 11/20/2022 MRI Brain w/wo contrast * 03/21/2023 MRI Brain w/wo contrast * 10/11/2023 MRI Brain w/wo contrast * 05/25/2024 MRI Brain w/wo contrast * 12/29/2021 Insurance Providers Payer Name Payer Address Payer Phone Subscriber Number Group Number Insured Name Patient Relationship to Insured Coverage Start Date Coverage End Date MMO [employer] [address] [place] [address] [id number] Sincere Gordon Self - patient is the insured 2
== END 2025-01-27 08:01 | disposition home or self-care (01) ==
LOC: CT 08:00
PROVIDERS: PCP Nurse Practitioner; Visit Provider Nurse Practitioner
DX: M54.2 Cervicalgia (principal); Z85.841 Personal history of malignant neoplasm of brain
CPT/HCPCS: 70491; Q9967